=== PATIENT | male | born 1955 | race Hispanic/Latino ===

== ENCOUNTER 2017-06-30 06:55 | Emergency (ER) | payer OTHER ==
[2017-06-30 06:56] VITALS: BMI 27.7
[2017-06-30] MEDS ORDERED: Bacitracin 500 Units/gm Oint Foilpak UD TOP ONE (07:35)
[2017-06-30] MEDS ORDERED: Lidocaine 2% Inj (20ml) INFIL ONE (07:42)
[2017-06-30] MEDS ORDERED: Bacitracin 500 Units/gm Oint Foilpak UD ONE (07:49)
[2017-06-30] MEDS ORDERED: Lidocaine 2% Inj (20ml) ONE (07:49)
--- NOTE | 2017-06-30 08:12 | C.PDOC ---
History Of Present Illness 62 yo male c/o left hand wound since 9pm last night. Pt put his hand in a container which had a metal piece in it which cut him. Notes he irrigated it at the time. denies pain, decreased movement or sensation. Time Seen by Provider: 06/30/17 07:13 Chief Complaint (Nursing): Abnormal Skin Integrity History Per: Patient History/Exam Limitations: no limitations Onset/Duration Of Symptoms: Hrs Current Symptoms Are (Timing): Still Present Past Medical History Vital Signs: Last Vital Signs Temp 98.2 F 06/30/17 08:19 Pulse 75 06/30/17 08:19 Resp 16 06/30/17 08:19 BP 122/70 06/30/17 08:19 Pulse Ox 100 06/30/17 08:19 - Medical History PMH: HTN, Hypothyroidism - [facility] Procedures CLOSED ENDOSCOPIC BIOPSY OF LARGE INTESTINE (07/18/13) ESOPHAGOGASTRODUODENOSCOPY [EGD] W/CLOSED BIOPSY (07/18/13) Family History: States: Unknown Family Hx - Social History Hx Alcohol Use: Yes Hx Substance Use: No - Immunization History Hx Tetanus Toxoid Vaccination: No Hx Influenza Vaccination: Yes Hx Pneumococcal Vaccination: No Review Of Systems Constitutional: Negative for: Fever Musculoskeletal: Negative for: Hand Pain Neurological: Negative for: Weakness, Numbness Physical Exam - Physical Exam Appears: Well, Non-toxic, No Acute Distress Skin: Warm, Dry, Other ((+) 1 cm L shaped laceration to the webspace between the 2nd and 3rd digit. ) Head: Atraumatic, Normacephalic Eye(s): bilateral: Normal Inspection, EOMI Nose: Normal Oral Mucosa: Moist Neck: Normal, Normal ROM, Supple Chest: Symmetrical Respiratory: No Accessory Muscle Use Back: Normal Inspection Extremity: Normal ROM, No Tenderness, Capillary Refill (< 2 sec), No Swelling Pulses: Left Radial: Normal, Right Radial: Normal Neurological/Psych: Oriented x3, Normal Speech, Normal Motor, Normal Sensation ED Course And Treatment O2 Sat by Pulse Oximetry: 98 Progress Note: Pt was offered Xr, but refused. Adacel given. Discussed with pt risks vs benefits with delayed closure. Pt requests closure. Wound irrigated thouroughly . Keflex and bacitracin ordered. Instructed wound check in2 days and would care. Laceration - Laceration Repair left hand Wound Length (In cm): 1 Description Of Wound: Irregular Wound Cleansed With: Betadine, Sterile Saline Anesthesia: Lidocaine 1% Wound Examination: Irrigated With Saline, No FB With Wound Exploration, No Tendon Injury With Wound Exploration Wound Closure: Suture (two) Suture Technique And Material Used: Nylon Wound Complexity: Simple Disposition - Disposition Disposition: HOME/ ROUTINE Disposition Time: 08:10 Condition: STABLE Additional Instructions: Watch for signs of infection including redness, swelling and discharge. Wound check in 2 days. Suture removal in 7-10 days. Prescriptions: Cephalexin [cephalexin] 500 mg PO BID 7 Days cap Instructions: Laceration (ED) Forms: [facility] ([place]) - Clinical Impression Clinical Impression: Laceration of left hand
[2017-06-30 08:20] VITALS: BP 122/70; PULSE 75; RESP 16; TEMP 98.2
[2017-06-30 10:00] VITALS: O2SAT 98
== END 2017-06-30 08:19 | disposition home or self-care (01) ==
LOC: C.ER 06:55
DX: S61.412A Laceration without foreign body of left hand, initial encounter (principal); W45.8XXA Other foreign body or object entering through skin, initial encounter